=== PATIENT | male | born 1955 | race Caucasian/White ===

== ENCOUNTER 2021-02-26 08:46 | Emergency (ER) | payer BC ==
[2021-02-26] MEDS ORDERED: SODIUM CHLORIDE 0.9% 1,000 ML IV STA (09:05)
--- NOTE | 2021-02-26 09:08 | ED Physician Documentation ---
History of Present Illness - Stated complaint Stated Complaint: WEAKNESS - Chief complaint Chief Complaint: General - History obtained from History obtained from: Patient - Additonal information Additional information: 65-year-old man with past medical history of high blood pressure on hydrochlorothiazide, not taking it for the past week secondary to feeling dehydrated, presents with malaise progressive over the past 10 days, intermittent nonproductive cough associated with tightness in the throat and chest, generalized weakness. Denies fever, hemoptysis, leg swelling, shortness of breath, crushing chest pain, pleurisy, nausea, diaphoresis. CCTA 2 years ago normal. no cardiac history. Review of Systems Ten Systems: 10 systems reviewed and negative Constitutional: reports: Myalgias, Fatigue. denies: Fever, Chills Respiratory: reports: Dyspnea, Cough PD PAST MEDICAL HISTORY - Present Medications Home Medications: Ambulatory Orders Medication Instructions Recorded Confirmed Azithromycin [Zithromax Tri-Blayne] 500 mg PO QDAC 5 Days #6 tablet 02/26/21 Omeprazole [PriLOSEC] 20 mg PO DAILY 02/26/21 02/26/21 hydroCHLOROthiazide [Hydrodiuril] 25 mg PO DAILY 02/26/21 02/26/21 - Allergies Allergies/Adverse Reactions: Allergies Allergy/AdvReac Type Severity Reaction Status Date / Time No Known Drug Allergies Allergy Verified 02/26/21 08:51 PD ED PE NORMAL - Vitals Vital signs reviewed: Yes - General General: Alert and oriented X 3, No acute distress, Well developed/nourished - HEENT HEENT: Atraumatic, PERRL, EOMI - Neck Neck: Supple, no meningeal sign - Cardiac Cardiac: RRR - Respiratory Respiratory: No respiratory distress, Other (Left basilar crackles. Lungs are otherwise clear.) - Abdomen Abdomen: Non tender, Non distended - Derm Derm: Normal color, Warm and dry - Extremities Extremities: No deformity, No edema - Neuro Neuro: Alert and oriented X 3 - Psych Psych: Normal mood, Normal affect Results - Vitals Vitals: Vital Signs - 24 hr 02/26/21 02/26/21 08:53 10:25 Temperature 36.6 C Heart Rate 85 68 Respiratory 18 17 Rate Blood Pressure 167/79 H 157/88 H O2 Saturation 97 96 Oxygen O2 Source Room air - EKG (time done) 0910 Rate: Rate (enter#) (79) Rhythm: NSR [place]: Normal Intervals: Normal CO QRS: Normal Ischemia: Normal ST segments - Labs Labs: Laboratory Tests 02/26/21 02/26/21 02/26/21 09:10 09:30 09:30 WBC 7.5 RBC 4.81 Hgb 14.8 Hct 41.9 L MCV 87.1 MCH 30.8 MCHC 35.3 RDW 12.1 Plt Count 208 MPV 10.2 Neut # (Auto) 6.6 Lymph # (Auto) 0.6 L [place] # (Auto) 0.3 Eos # (Auto) 0.0 Baso # (Auto) 0.0 Absolute Nucleated RBC 0.00 Nucleated RBC % 0.0 Sodium 130 L Potassium 3.8 Chloride 99 L Carbon Dioxide 24 Anion Gap 7.0 BUN 9 Creatinine 0.7 Estimated GFR (MDRD) 113 Glucose 226 H POC Whole Bld Glucose 241 H Calcium 9.2 Total Bilirubin 1.0 AST 24 ALT 40 Alkaline Phosphatase 63 Total Protein 7.3 Albumin 4.3 Globulin 3.0 Albumin/Globulin Ratio 1.4 Lipase 25 Departure - Departure Disposition: 01 Home, Self Care Clinical Impression: Hyperglycemia, Pneumonia Condition: Good Instructions: Pneumonia Dc Prescriptions: Azithromycin [Zithromax Tri-Blayne] 500 mg PO QDAC 5 Days #6 tablet Comments: You are seen in the emergency department and found to have pneumonia in the left lung base. Take your antibiotics as prescribed and return to the emergency department if you have any new or worsening symptoms or other concerns. In addition, Your blood glucose was 241, which is elevated, indicating that you may have diabetes. You need to follow-up with your primary doctor in regards to this.
[2021-02-26 09:39] LABS: BASOPHILS % (AUTO) 0.1 %; EOSINOPHILS % (AUTO) 0.5 %; HCT - HEMATOCRIT 41.9 % (42.0-52.0); HGB - HEMOGLOBIN 14.8 g/dL (14.0-18.0); LYMPHOCYTES # (AUTO) 0.6 10^3/uL (1.5-3.5); LYMPHOCYTES % (AUTO) 7.8 %; MEAN CORPUSCULAR HEMOGLOBIN 30.8 pg (27.0-31.0); MEAN CORPUSCULAR HGB CONC 35.3 g/dL (32.0-36.0); MEAN CORPUSCULAR VOLUME 87.1 fL (80.0-94.0); MEAN PLATELET VOLUME 10.2 fL (7.4-11.4); MONOCYTES # (AUTO) 0.3 10^3/uL (0.0-1.0); MONOCYTES % (AUTO) 3.8 %; NEUTROPHILS # (AUTO) 6.6 10^3/uL (1.5-6.6); NEUTROPHILS % (AUTO) 87.5 %; PLT - PLATELET COUNT 208 10^3/uL (130-450); RED BLOOD COUNT 4.81 10^6/uL (4.70-6.10); RED CELL DISTRIBUTION WIDTH 12.1 % (12.0-15.0); WHITE BLOOD COUNT 7.5 x10^3/uL (4.8-10.8)
--- NOTE | 2021-02-26 09:51 | XRAY Report ---
PROCEDURE: Chest 2 View X-Ray INDICATIONS: nonprod cough, hx walking pna, malaise, weak TECHNIQUE: 2 view(s) of the chest. COMPARISON: None. FINDINGS: Surgical changes and devices: None. Lungs and pleura: No pleural effusions or pneumothorax. Patchy opacities noted in the posterior aspe ct of the left lung base concerning for pneumonia. Mediastinum: Mediastinal contours are normal. Heart size is normal. Bones and chest wall: No suspicious bony abnormalities. Soft tissues appear unremarkable. IMPRESSION: See left basilar airspace opacities suspicious for pneumonia. Reviewed by: Arlyn Barger MD, PhD on 02/26/2021 9:49 AM PDT Approved by: Arlyn Barger MD, PhD on 02/26/2021 9:49 AM PDT Station ID: [id number]
[2021-02-26 09:53] LABS: ALBUMIN 4.3 g/dL (3.2-5.5); ALBUMIN/GLOBULIN RATIO 1.4 (1.0-2.2); CALCIUM 9.2 mg/dL (8.5-10.3); CREATININE 0.7 mg/dL (0.6-1.2); POTASSIUM 3.8 mmol/L (3.5-5.0); TOTAL PROTEIN 7.3 g/dL (6.7-8.2)
[2021-02-26 11:21] VITALS: BP 163/90
== END 2021-02-26 11:29 | disposition home or self-care (01) ==
LOC: ED 08:46
DX: B34.2 Coronavirus infection, unspecified (principal); J18.9 Pneumonia, unspecified organism; I10 Essential (primary) hypertension; R73.9 Hyperglycemia, unspecified
CPT/HCPCS: 36415; 80053; 83690; 85025; 87040; 93005; 99284

== ENCOUNTER 2021-02-28 16:33 | Emergency (ER) | payer BC ==
[2021-02-28] MEDS ORDERED: SODIUM CHLORIDE 0.9% 1,000 ML IV STA (16:54)
--- NOTE | 2021-02-28 16:56 | ED Physician Documentation ---
History of Present Illness - Stated complaint Stated Complaint: C+/R SIDE PX/WEAKNESS - Chief complaint Chief Complaint: Resp - Additonal information Additional information: 65-year-old male presents to the emergency department for Concerns of feeling poorly in the setting of COVID-19 infection. This gentleman did receive the COVID-19 vaccine in late September and early October. He has been feeling poorly for about 12 days now. He has had a mild cough and some shortness of air. He presented to this emergency department on the and was found to have a left lower lobe pneumonia. And Covid test subsequently became positive. His was in attendance with him also had a rapid Covid test that was positive. This gentleman denies chest pain but reports feeling extremely fatigued and having difficulty completing his activities of daily living. He has not had any fevers. He does have a history of hypertension. When being seen 2 days ago by my colleague he was started on azithromycin. A physician friend of his in [place] started him on Augmentin today Review of Systems Constitutional: reports: Myalgias. denies: Fever, Chills Eyes: reports: Reviewed and negative Ears: reports: Reviewed and negative Nose: reports: Reviewed and negative Throat: reports: Reviewed and negative Cardiac: denies: Chest pain / pressure, Calf pain Respiratory: reports: Dyspnea. denies: Cough GI: denies: Abdominal Pain, Abdominal Swelling, Nausea, Vomiting : denies: Dysuria Skin: denies: Rash, Lesions Musculoskeletal: denies: Neck pain, Back pain, Extremity pain Neurologic: reports: Generalized weakness. denies: Focal weakness PD PAST MEDICAL HISTORY - Past Medical History Cardiovascular: Hypertension Respiratory: None Neuro: None Endocrine/Autoimmune: None GI: GERD : None HEENT: None Psych: None Musculoskeletal: None Derm: None - Past Surgical History Past Surgical History: Yes HEENT: Tonsil/Adenoidectomy - Present Medications Home Medications: Ambulatory Orders Medication Instructions Recorded Confirmed Azithromycin [Zithromax Tri-Blayne] 500 mg PO QDAC 5 Days #6 tablet 02/26/21 02/28/21 Omeprazole [PriLOSEC] 20 mg PO DAILY 02/26/21 02/28/21 hydroCHLOROthiazide [Hydrodiuril] 25 mg PO DAILY 02/26/21 02/28/21 - Allergies Allergies/Adverse Reactions: Allergies Allergy/AdvReac Type Severity Reaction Status Date / Time No Known Drug Allergies Allergy Verified 02/28/21 16:49 - Social History Does the pt smoke?: No Smoking Status: Never smoker Does the pt drink ETOH?: Yes Does the pt have substance abuse?: No - Immunizations Immunizations are current?: Yes PD ED PE EXPANDED - General General: Alert, No acute distress, Well developed/nourished - Neck Neck: Supple w/out meningeal sx. No: Adenopathy - Cardiac Cardiac: Regular Rate, Radial strong equal, Cap refill < 2 sec - Respiratory Respiratory: Clear to ausultation alfred. No: Distress, Labored - Abdomen Abdomen: Normal Bowel sounds. No: Tender to palpation - Derm Derm: Normal color, Warm and dry - Extremities Extremities: Normal. No: Deformity, Tenderness - Neuro Neuro: Alert and Oriented X 3, CNII-XII intact - GCS Eye Opening: Spontaneous Motor: Obeys Commands Verbal: Oriented Total: 15 Results - Vitals Vitals: Vital Signs - 24 hr 02/28/21 16:35 Temperature 36.9 C Heart Rate 73 Respiratory 16 Rate Blood Pressure 178/90 H O2 Saturation 98 Oxygen O2 Source Room air - Labs Labs: Laboratory Tests 02/28/21 02/28/21 02/28/21 16:57 16:57 16:57 WBC 7.4 RBC 4.99 Hgb 15.0 Hct 40.6 L MCV 81.4 MCH 30.1 MCHC 36.9 H RDW 11.7 L Plt Count 297 MPV 10.1 Neut # (Auto) 5.3 Lymph # (Auto) 1.2 L [place] # (Auto) 0.8 Eos # (Auto) 0.2 Baso # (Auto) 0.0 Absolute Nucleated RBC 0.00 Nucleated RBC % 0.0 Sodium 122 L Potassium 3.2 L Chloride 88 L Carbon Dioxide 22 Anion Gap 12.0 BUN 13 Creatinine 0.5 L Estimated GFR (MDRD) 166 Glucose 137 H Lactic Acid 0.8 Calcium 9.1 Total Bilirubin 1.2 H AST 23 ALT 42 Alkaline Phosphatase 70 Total Protein 7.9 Albumin 4.3 Globulin 3.6 Albumin/Globulin Ratio 1.2 Lipase 27 - Rads (name of study) CXR Radiology: Final report received (Nodular disease in the left infrahilar area. Recommend repeat imaging for resolution.) PD MEDICAL DECISION MAKING - ED course Complexity details: reviewed results, re-evaluated patient, considered differential, d/w patient, d/w family ED course: 65-year-old male who carries a history of hypertension presents the emergency department for concerns that he is increasingly fatigued. This is in the setting of a recent diagnosis of COVID-19 that was diagnosed 2 days ago by my colleague. Unfortunately he began getting sick about 12 days ago. Chest x-ray on the of this month showed a left lower lobe pneumonia and he was started on azithromycin. He denies chest pain or worsening exertional dyspnea. He is not hypoxic. Repeat chest x-ray today again demonstrates the left lower lobe pneumonia though it has not progressed. A colleague friend of him started him on Augmentin as well. Screening labs today do not show any leukocytosis he is however hyponatremic which is a common finding with COVID-19. I did offer this gentleman admission to the hospital for further evaluation and treatment of the hyponatremia but he declined that today. He will be given a one-time dose of Decadron here in the emergency department. Unfortunately he is outside the window of treatment for monoclonal antibody. Reassuringly he is not hypoxic or dyspneic thus we would not need to admit him for remdesivir therapy. I have advised patient to have his hyponatremia reevaluated in 48 hours through lab draw. If the symptoms are worsening in the interim he is to return immediately to the emergency department. Departure - Departure Disposition: 01 Home, Self Care Clinical Impression: COVID-19, Hyponatremia Pneumonia Qualifiers: Pneumonia type: due to unspecified organism Laterality: left Lung location: lower lobe of lung Qualified Code(s): J18.9 - Pneumonia, unspecified organism Condition: Stable Record reviewed to determine appropriate education?: Yes Comments: Mathew you were seen today for worsening fatigue in the setting of COVID-19 infection. Your chest x-ray today is not markedly different than 2 days ago. Unfortunately you are outside the window of treatment for monoclonal antibody. You were given a one-time dose of Decadron here in the emergency department which may help improve your symptoms. Reassuringly you do not need to be admitted to the hospital for your COVID-19 as you are not requiring extra oxygen and your vital signs are otherwise normal. Please continue the azithromycin as well as the Augmentin that your colleague started you on today. Today our screening labs did reveal a modest hyponatremia or low sodium level (122 mg/dl). You were offered admission to the hospital for this today but you declined. Hyponatremia is a common finding in patients that have COVID-19. Please increase your salt intake over the next 48 hours. I would like to have your labs redrawn to make sure it is not worsening. You may return to the ER to have this completed if necessary. If at any point you develop a sudden headache, are confused, have any worsening shortness of breath or develop chest pain please return immediately to the ER for a second evaluation.
--- NOTE | 2021-02-28 17:09 | XRAY Report ---
PROCEDURE: Chest 1 View X-Ray INDICATIONS: COVID, PNA TECHNIQUE: One view of the chest was acquired. COMPARISON: Chest x-ray 2 views, 02/26/2021. FINDINGS: Surgical changes and devices: None. Lungs and pleura: There are nodular disease in the left infrahilar area. No pleural effusions or pn eumothorax. Lungs are clear. Mediastinum: Mediastinal contours appear normal. Heart size is normal. Bones and chest wall: No suspicious bony lesions. Overlying soft tissues appear unremarkable. IMPRESSION: 1. Nodular disease in the left infrahilar area. This could represent focal pneumonia. Recommend follo w-up to resolution. Reviewed by: Rohit Hensley MD on 02/28/2021 5:07 PM PDT Approved by: Rohit Hensley MD on 02/28/2021 5:07 PM PDT Station ID: [id number]
[2021-02-28 17:20] LABS: ALBUMIN 4.3 g/dL (3.2-5.5); ALBUMIN/GLOBULIN RATIO 1.2 (1.0-2.2); BILIRUBIN,TOTAL 1.2 mg/dL (0.2-1.0); CALCIUM 9.1 mg/dL (8.5-10.3); CREATININE 0.5 mg/dL (0.6-1.2); POTASSIUM 3.2 mmol/L (3.5-5.0); TOTAL PROTEIN 7.9 g/dL (6.7-8.2)
[2021-02-28 17:45] LABS: BASOPHILS % (AUTO) 0.3 %; EOSINOPHILS # (AUTO) 0.2 10^3/uL (0.0-0.7); HCT - HEMATOCRIT 40.6 % (42.0-52.0); LYMPHOCYTES # (AUTO) 1.2 10^3/uL (1.5-3.5); LYMPHOCYTES % (AUTO) 15.7 %; MEAN CORPUSCULAR HEMOGLOBIN 30.1 pg (27.0-31.0); MEAN CORPUSCULAR HGB CONC 36.9 g/dL (32.0-36.0); MEAN CORPUSCULAR VOLUME 81.4 fL (80.0-94.0); MEAN PLATELET VOLUME 10.1 fL (7.4-11.4); MONOCYTES # (AUTO) 0.8 10^3/uL (0.0-1.0); MONOCYTES % (AUTO) 10.8 %; NEUTROPHILS # (AUTO) 5.3 10^3/uL (1.5-6.6); NEUTROPHILS % (AUTO) 70.7 %; PLT - PLATELET COUNT 297 10^3/uL (130-450); RED BLOOD COUNT 4.99 10^6/uL (4.70-6.10); RED CELL DISTRIBUTION WIDTH 11.7 % (12.0-15.0); WHITE BLOOD COUNT 7.4 x10^3/uL (4.8-10.8)
[2021-02-28] MEDS ORDERED: DEXAMETHASONE 10 MG/ML VIAL PO STA (18:12)
[2021-02-28] MEDS ORDERED: CHERRY SYRUP 10 ML UDC PO ONE (18:12)
[2021-02-28 18:52] VITALS: BP 125/70
== END 2021-02-28 19:01 | disposition home or self-care (01) ==
LOC: ED 16:33
DX: U07.1 COVID-19 (principal); J12.82 Pneumonia due to coronavirus disease 2019; E87.1 Hypo-osmolality and hyponatremia; I10 Essential (primary) hypertension
CPT/HCPCS: 36415; 80053; 83605; 83690; 85025; 96360; 99284